=== PATIENT | female | born 1965 | race African-American/Black ===

== ENCOUNTER 2025-07-07 09:05 | Inpatient (IN) | payer OTHER ==
[~2025-07-07] VITALS: Ht 152.4 cm; Wt 87.1 kg
[2025-07-07 09:17] VITALS: O2SAT 99
[2025-07-07 09:46] LABS: BASOPHILS % 0.6 % (0.0-2.0); EOSINOPHILS % 2.9 % (0.0-5.0); HEMATOCRIT. 43.4 % (36.0-48.0); HEMOGLOBIN. 13.7 g/dL (12.0-16.0); LYMPHOCYTES % 25.7 % (20.0-50.0); MEAN PLATELET VOLUME 9.7 fl (7.4-10.4); MONOCYTES % 13.2 % (2.0-8.0); NEUTROPHILS % 57.6 % (40.0-76.0); PLATELET 191 x1000/uL (130-400); RED BLOOD CELL COUNT 5.09 mill/uL (4.2-5.4); RED CELL DISTRIBUTION WIDTH 15.8 % (11.6-14.6)
[2025-07-07 09:54] LABS: CREATININE 0.9 mg/dL (0.6-1.0); UREA NITROGEN BLOOD 8 mg/dL (9-23)
[2025-07-07 09:57] LABS: TROPONIN I HIGH SENSITIVITY < 4 ng/L (3.0-34)
[2025-07-07] MEDS ORDERED: ASPIRIN 325MG EC TABLET PO ONE (10:30)
[2025-07-07] MEDS: POTASSIUM CHLORIDE 20MEQ/PACKET PO ONE (12:46)
[2025-07-07] MEDS: ASPIRIN 325MG EC TABLET PO ONE (12:46)
[2025-07-07 13:41] LABS: CLARITY URINE CLEAR (CLEAR); COLOR URINE YELLOW (YELLOW); GLUCOSE URINE NEGATIVE (NEGATIVE); KETONES URINE 1+ (NEGATIVE); LEUKOCYTE ESTERASE URINE 1+ (NEGATIVE); NITRITE URINE NEGATIVE (NEGATIVE); OCCULT BLOOD URINE NEGATIVE (NEGATIVE); PH URINE 7.0 (4.5-8.0); PROTEIN URINE TRACE (NEGATIVE); SPECIFIC GRAVITY URINE 1.017 (1.005-1.030); UROBILINOGEN URINE 0.2 E.U./dL (0.2-1.0)
[2025-07-07 14:06] LABS: BACTERIA URINE 2+; RBC URINE 0-2 /hpf (0-2); SQUAMOUS EPITHELIAL CELL URINE 3+ /lpf (RARE/1+); YEAST URINE NONE SEEN
[2025-07-07 15:39] VITALS: BP 136/89; PULSE 77; RESP 13; TEMP 37.1; O2SAT 97
[2025-07-07 15:50] VITALS: BP 136/89; PULSE 79; RESP 12; TEMP 37.1408
[2025-07-07] MEDS ORDERED: PROG200C11 PO (16:55)
[2025-07-07] MEDS ORDERED: FAMO40TA7 PO (16:55)
[2025-07-07] MEDS ORDERED: METO-385 PO (16:55)
[2025-07-07] MEDS ORDERED: ROSU40TA PO (16:55)
[2025-07-07] MEDS ORDERED: AMLO10TA80 PO (16:59)
[2025-07-07] MEDS ORDERED: PANT40TA51 PO (16:59)
[2025-07-07] MEDS ORDERED: MIRA50TA PO (16:59)
[2025-07-07] MEDS ORDERED: ONDANSETRON HCL 4MG/2ML INJ IV PRN (17:00)
[2025-07-07] MEDS ORDERED: DIPHENHYDRAMINE 50MG/ML VIAL IV PRN (17:00)
[2025-07-07] MEDS ORDERED: ACETAMINOPHEN 325MG TABLET PO PRN (17:00)
[2025-07-07] MEDS ORDERED: DOCUSATE SODIUM 100MG CAPSULE PO PRN (17:00)
[2025-07-07] MEDS ORDERED: IPRATROPIUM/ALBUTEROL 0.5-3(2.5)MG/3ML NEB HHN PRN (17:00)
[2025-07-07] MEDS ORDERED: ACETAMINOPHEN 650MG/20.3ML UDC GT PRN (17:00)
[2025-07-07] MEDS ORDERED: CLONIDINE 0.1MG TABLET PO PRN (17:00)
[2025-07-07] MEDS ORDERED: ZOLPIDEM TARTRATE 5MG TABLET PO PRN (17:00)
[2025-07-07] MEDS: PANTOPRAZOLE 40MG DR TABLET PO SCH (18:30)
[2025-07-07] MEDS: POTASSIUM CHLORIDE 20MEQ TABLET SR PO NR (18:30)
[2025-07-07 20:00] VITALS: BP 106/72; PULSE 71; RESP 10; TEMP 36.6; O2SAT 95
[2025-07-07] MEDS: ACETAMINOPHEN 325MG TABLET PO PRN (21:07)
[2025-07-07] MEDS: ATORVASTATIN CALCIUM 40MG TABLET PO SCH (21:07)
[2025-07-07] MEDS: LEVOFLOXACIN 250MG TABLET PO SCH (21:54)
[2025-07-07] MEDS: PROGESTERONE 200 MG PO SCH (22:47)
[2025-07-08] VITALS: BP 104/74; PULSE 83; RESP 19; TEMP 36.8; O2SAT 96
[2025-07-08 00:50] LABS: TROPONIN I HIGH SENSITIVITY < 4 ng/L (3.0-34)
[2025-07-08 01:21] LABS: HEPATITIS C AB NON REACTIVE (Neg) (Negative)
[2025-07-08 04:00] VITALS: BP 104/69; PULSE 71; RESP 12; TEMP 36.6; O2SAT 95
[2025-07-08] MEDS ORDERED: PANTOPRAZOLE 40MG DR TABLET PO SCH ×2 (06:50→21:00)
[2025-07-08 07:23] LABS: HEMATOCRIT. 38.9 % (36.0-48.0); HEMOGLOBIN. 12.6 g/dL (12.0-16.0); MEAN PLATELET VOLUME 10.0 fl (7.4-10.4); PLATELET 174 x1000/uL (130-400); RED BLOOD CELL COUNT 4.63 mill/uL (4.2-5.4); RED CELL DISTRIBUTION WIDTH 15.3 % (11.6-14.6)
[2025-07-08 07:38] LABS: CREATININE 1.1 mg/dL (0.6-1.0)
[2025-07-08 07:40] LABS: UREA NITROGEN BLOOD 14 mg/dL (9-23)
[2025-07-08 08:00] VITALS: BP 92/63; PULSE 77; RESP 10; TEMP 36.7; O2SAT 97
[2025-07-08 08:43] LABS: TROPONIN I HIGH SENSITIVITY < 4 ng/L (3.0-34)
[2025-07-08] MEDS: METOPROLOL SUCCINATE 50MG ER TABLET PO SCH (09:00)
[2025-07-08] MEDS: ENOXAPARIN 40MG/0.4ML SYR SUBCUT SCH (09:00)
[2025-07-08] MEDS ORDERED: MEDICATION NOT ON FORMULARY EA (Rosuvastatin Calcium (Crestor) 20 MG) PO SCH (09:00)
[2025-07-08] MEDS: AMLODIPINE 10MG TABLET PO SCH (09:00)
[2025-07-08 12:00] VITALS: BP 121/74; PULSE 85; RESP 16; TEMP 36.7; O2SAT 97
[2025-07-08 16:00] VITALS: BP 121/74; PULSE 75; RESP 13; TEMP 36.9; O2SAT 97
[2025-07-08 17:25] VITALS: BP 121/74; PULSE 75; RESP 13; TEMP 98.5
[2025-07-08] MEDS ORDERED: LEVO250T74 PO (18:00)
[2025-07-08] MEDS ORDERED: FAMOTIDINE 20MG TABLET PO SCH (21:00)
[2025-07-09 16:03] LABS: EOSINOPHILS % MANUAL 3.0 % (0.0-5.0); LYMPHOCYTES % MANUAL 44.0 % (20.0-60.0); MONOCYTES % MANUAL 18.0 % (2.0-8.0); NEUTROPHILS % MANUAL 35.0 % (45.0-75.0); PLATELET ESTIMATE NORMAL
== END 2025-07-08 18:53 | disposition home or self-care (01) | DRG 690 ==
LOC: ER 09:55 → 3WST 13:36 → EDBEDREQ 13:38 → EDBEDREQTM 13:38 → ENRESERV 14:37
PROVIDERS: ADMIT Internal Medicine; ATTEND Internal Medicine
DX: N39.0 Urinary tract infection, site not specified (principal); E78.5 Hyperlipidemia, unspecified; I10 Essential (primary) hypertension; F41.9 Anxiety disorder, unspecified; K21.9 Gastro-esophageal reflux disease without esophagitis; E87.6 Hypokalemia; M48.02 Spinal stenosis, cervical region; Z82.49 Family history of ischemic heart disease and other diseases of the circulatory system; Z79.899 Other long term (current) drug therapy
CPT/HCPCS: 36415; 71045; 80048; 81003; 82553; 84484; 85025; 86705; 87340; 93005; 93970; 99285; J1650